=== PATIENT | female | born 1995 | race Caucasian/White ===

== ENCOUNTER 2021-07-05 01:59 | Emergency (ER) | payer OTHER ==
[~2021-07-05] VITALS: Ht 167.6 cm; Wt 83.2 kg
[2021-07-05 02:21] VITALS: BP 142/115
--- NOTE | 2021-07-05 02:25 | NUR ---
PT TAKEN TO BED 07
--- NOTE | 2021-07-05 02:46 | NUR ---
20G IV CATH PLACED R AC.
--- NOTE | 2021-07-05 03:03 | NUR ---
ER AT BEDSIDE
[2021-07-05] MEDS ORDERED: LORazepam 1 MG TAB PO ONE (03:05)
[2021-07-05] MEDS ORDERED: PANTOPRAZOLE 40 MG INJ VIAL IVP ONE (03:10)
[2021-07-05] MEDS ORDERED: NACL 0.9% 1,000 ML IV ONE (03:10)
[2021-07-05] MEDS ORDERED: ONDANSETRON 4 MG/2 ML VIAL IVP ONE (03:10)
[2021-07-05 03:17] LABS: BASOPHILS % (AUTO) 0.6 % (0.0-2.0); EOSINOPHILS % (AUTO) 0.7 % (0.0-4.0); MEAN CORPUSCULAR HEMOGLOBIN 35 pg (27-31); MEAN CORPUSCULAR HGB CONC 35 g/dL (33-37); MONOCYTES # (AUTO) 0.6 K/uL (0.8-1.0); WHITE BLOOD COUNT (AUTO) 6.3 K/uL (4.8-10.8)
--- NOTE | 2021-07-05 03:23 | NUR ---
LABS COLLECTED AND SENT TO LAB
[2021-07-05 03:30] LABS: HEMOGLOBIN 15.6 g/dL (12.0-16.0); MEAN CORPUSCULAR VOLUME 100.4 fL (80-94); PLATELET COUNT (AUTO) 299 K/uL (140-450); RED BLOOD CELL COUNT(AUTO) 4.48 MIL/uL (4.20-5.40); RED CELL DISTRIBUTION WIDTH 13.5 % (11.6-13.7)
[2021-07-05 03:31] LABS: LYMPHOCYTES # (AUTO) 1.1 K/uL (2.5-16.5); LYMPHOCYTES % (AUTO) 16.9 % (20.5-51.1); MONOCYTES % (AUTO) 9.8 % (1.7-9.3); NEUTROPHILS # (AUTO) 4.5 K/uL (1.8-7.7)
[2021-07-05 03:45] LABS: ALBUMIN 4.3 g/dL (3.4-5.0); ANION GAP 16.7 (8-16); ASPARTATE AMINOTRANSFERASE 115 U/L (15-37); CHLORIDE 99 mmol/L (98-107); CREATININE 0.7 mg/dL (0.6-1.3); GFR ARICAN-AMERICAN 129 mL/min (>90); GLUCOSE 170 mg/dL (74-106); LIPASE 158 U/L (73-393); SODIUM SERUM 139 mmol/L (136-145); UREA NITROGEN, BLOOD 9 mg/dL (7-18)
[2021-07-05 03:58] LABS: POTASSIUM 2.7 mmol/L (3.5-5.1)
[2021-07-05] MEDS ORDERED: POTASSIUM CHL 40 MEQ/ D5-1/2NS 1,000 ML IV ONE (04:00)
[2021-07-05] MEDS ORDERED: POTASSIUM CHLORIDE 10 MEQ TABER PO ONE (04:00)
[2021-07-05] MEDS ORDERED: chlordiazePOXIDE 25 MG CAP PO STA (04:08)
--- NOTE | 2021-07-05 04:45 | NUR ---
PT AWAKE STATES SOME RELIEF FROM MEDS. HOB ELEVATED. PAIN 5/10. RESP EVEN AND UNLABORED
--- NOTE | 2021-07-05 05:07 | NUR ---
ER MD AT BEDSIDE DISCUSSING PT RESULTS
--- NOTE | 2021-07-05 05:08 | NUR ---
Camille may in [facility] - 07/05/21 at 0509 by BULL RECIEVED REPORT FROM NABIL YEH
--- NOTE | 2021-07-05 05:10 | NUR ---
RECIEVED REPORT FROM PILAR YEH
[2021-07-05] MEDS ORDERED: POTA10TA70 PO (05:14)
[2021-07-05] MEDS ORDERED: LIB25 PO (05:14)
[2021-07-05] MEDS ORDERED: ONDA-188 SL (05:14)
[2021-07-05 05:43] VITALS: BP 136/98
--- NOTE | 2021-07-05 05:45 | NUR ---
Patient discharged with v/s stable. Written and verbal after care instructions given and explained. Patient alert, oriented and verbalized understanding of instructions. Ambulatory with steady gait. All questions addressed prior to discharge. ID band removed. Patient advised to follow up with PMD. Rx of ZOFRAN, LIBRIUM, AND K-DUR given. Patient educated on indication of medication including possible reaction and side effects. Opportunity to ask questions provided and answered. VSS, A/OX4, UNLABORED BREATHING, AMBULATORY, AND CALM DEMEANOR.
== END 2021-07-05 05:46 | disposition home or self-care (01) ==
LOC: MED 01:59
DX: R11.10 Vomiting, unspecified (principal); F10.239 Alcohol dependence with withdrawal, unspecified; E87.6 Hypokalemia
CPT/HCPCS: 36415; 80053; 83605; 83690; 85025; 96361; 96365; 96375; 99284; C9113; G0482; J2405; J7030; 96374

== ENCOUNTER 2021-10-17 12:33 | Emergency (ER) | payer OTHER ==
[~2021-10-17] VITALS: Ht 167.6 cm; Wt 78.9 kg
[~2021-10-17 12:33] MED LIST: LIB25 PO; ONDA-188 SL; POTA10TA70 PO
[2021-10-17 12:44] VITALS: BP 135/106
--- NOTE | 2021-10-17 12:53 | NUR ---
PT AMB TO BED 7.
[2021-10-17] MEDS ORDERED: NACL 0.9% 1,000 ML IV ONE ×2 (13:00→15:20)
[2021-10-17] MEDS ORDERED: LORazepam 1 MG TAB PO ONE (13:00)
[2021-10-17] MEDS ORDERED: MAG SULF 2000 MG/WATER PREMIX 50 ML IV STA (13:01)
--- NOTE | 2021-10-17 13:01 | NUR ---
PT C/O ETOH WITHDRAWL, LAST DRINK LAST NIGHT. PT DRINKS APPROX 7-8 BEERS DAILY FOR 3 WEEKS. PT TACHYCARDIC, CLAMMY, TREMORS AND ANXIOUS. IV INSERTED TO LEFT AC #[id number].
[2021-10-17] MEDS ORDERED: FOLIC ACID 5 MG, MULTIVITAMIN-12 10 ML in NACL 0.9% 1,000 ML IV ONE (13:05)
[2021-10-17] MEDS ORDERED: THIAMINE 200 MG/2 ML VIAL IM ONE (13:05)
--- NOTE | 2021-10-17 13:31 | NUR ---
pharmacy called for banana bag
--- NOTE | 2021-10-17 13:55 | NUR ---
PT AMBULATED TO RESTROOM
--- NOTE | 2021-10-17 14:00 | NUR ---
PT AMBULATED TO BACK TO ROOM
--- NOTE | 2021-10-17 14:05 | NUR ---
26YO FEMALE PT C/O ALCOHOL WITHDRAWAL XYESTERDAY. PT DRINKS ABOUT 5-6 BEERS DAILY, LAST DRINK BEING LAST NIGHT. PT PRESENTS TACHYCARDIC, CLAMMY, ANXIOUS AND W/ TREMORS. STATES 5/10 TIGHT ABDOMINAL PAIN DUE TO VOMITING X5 TODAY , DENIES BLOOD. ABDOMEN NON TENDER OR DISTENED, ACTIVE X4. DENIES DIARRHEA, CHEST PAIN, SOB OR FEVERS. NO RELIEF AFTER TAKING OTC ANTINASUEA MEDICATION. HX: BIPOLAR, ANXIETY NKA
[2021-10-17 14:23] LABS: BASOPHILS % (AUTO) 0.5 % (0.0-2.0); EOSINOPHILS % (AUTO) 0.2 % (0.0-4.0); HEMATOCRIT 43.9 % (36-48); HEMOGLOBIN 15.1 g/dL (12.0-16.0); LYMPHOCYTES # (AUTO) 1.2 K/uL (2.5-16.5); LYMPHOCYTES % (AUTO) 16.3 % (20.5-51.1); MEAN CORPUSCULAR HEMOGLOBIN 34 pg (27-31); MEAN CORPUSCULAR HGB CONC 34 g/dL (33-37); MEAN CORPUSCULAR VOLUME 98.6 fL (80-94); MONOCYTES # (AUTO) 0.4 K/uL (0.8-1.0); MONOCYTES % (AUTO) 5.8 % (1.7-9.3); NEUTROPHILS # (AUTO) 5.9 K/uL (1.8-7.7); NEUTROPHILS % (AUTO) 77.2 % (42.2-75.2); PLATELET COUNT (AUTO) 259 K/uL (140-450); RED BLOOD CELL COUNT(AUTO) 4.46 MIL/uL (4.20-5.40); RED CELL DISTRIBUTION WIDTH 13.6 % (11.6-13.7); WHITE BLOOD COUNT (AUTO) 7.6 K/uL (4.8-10.8)
[2021-10-17 14:30] LABS: ALBUMIN 4.3 g/dL (3.4-5.0); ANION GAP 20.7 (8-16); ASPARTATE AMINOTRANSFERASE 167 U/L (15-37); CARBON DIOXIDE 22.8 mmol/L (21-32); CHLORIDE 101 mmol/L (98-107); CREATININE 0.8 mg/dL (0.6-1.3); GFR ARICAN-AMERICAN 111 mL/min (>90); GLUCOSE 151 mg/dL (74-106); POTASSIUM 3.5 mmol/L (3.5-5.1); SODIUM SERUM 141 mmol/L (136-145); TOTAL BILIRUBIN 0.6 mg/dL (0.0-1.0); UREA NITROGEN, BLOOD 9 mg/dL (7-18)
--- NOTE | 2021-10-17 14:32 | NUR ---
MD LANG AT BEDSIDE FOR EVALUATION
[2021-10-17] MEDS ORDERED: LORazepam 2 MG/ML VIAL IVP ONE ×3 (14:40→17:00)
[2021-10-17 14:47] LABS: ACETAMINOPHEN < 0.5 ug/ml (10-30); SALICYLATE < 2.8 mg/dL (2.8-20.0)
[2021-10-17] MEDS ORDERED: DICYCLOMINE HCL LIQUID 20 MG, ALUMINUM HYD/MAG/SIMETHICONE 30 ML, LIDOCAINE VISCOUS 2% ... PO ONE ×3 (15:00)
[2021-10-17] MEDS ORDERED: ONDANSETRON 4 MG/2 ML VIAL IVP ONE (15:00)
[2021-10-17] MEDS ORDERED: ALUMINUM HYD/MAG/SIMETHICONE 30 ML UDC ONE (15:07)
[2021-10-17] MEDS ORDERED: DICYCLOMINE HCL LIQUID 10 MG/5 ML UDC ONE (15:07)
[2021-10-17 15:27] LABS: BARBITURATE, URINE NEGATIVE ng/ml (NEG <=200); BENZODIAZEPINE, URINE POSITIVE ng/mL (NEG <=200); CANNABINOID, URINE NEGATIVE ng/mL (NEG <=50); COCAINE, URINE NEGATIVE ng/mL (NEG <=300); OPIATE, URINE NEGATIVE ng/mL (NEG <=2000); PHENCYCLIDINE SCREEN,URINE NEGATIVE ng/mL (NEG <=25)
[2021-10-17 15:31] LABS: APPEARANCE,URINE CLEAR (CLEAR); BILIRUBIN,URINE NEGATIVE (NEGATIVE); BLOOD, URINE TRACE-I (NEGATIVE); COLOR,URINE YELLOW (YELLOW); LEUKOCYTE ESTERASE ,URINE NEGATIVE (NEGATIVE); NITRITE, URINE NEGATIVE (NEGATIVE); UGLUCOSE NEGATIVE (NEGATIVE)
[2021-10-17 16:12] LABS: RBC,URINE 0-5 /HPF (0-5); WBC,URINE 0-5 /HPF (0-5)
[2021-10-17 16:13] LABS: TRICHOMONAS,URINE None Seen /HPF (None Seen); YEAST,URINE None Seen /HPF (None Seen)
[2021-10-17] MEDS ORDERED: LIB25 PO ×3 (18:23→18:28)
[2021-10-17 19:10] VITALS: BP 131/86
--- NOTE | 2021-10-17 19:10 | NUR ---
Patient discharged with v/s stable. Written and verbal after care instructions FOR ALCOHOL WITHDRAWAL SYNDROME given and explained. Patient alert, oriented and verbalized understanding of instructions. Ambulatory with steady gait. All questions addressed prior to discharge. ID band removed. Patient advised to follow up with PMD. Rx of LIBRIUM given. Opportunity to ask questions provided and answered. CATHI KLINE PROVIDED
--- NOTE | 2021-10-17 19:30 | NUR ---
Camille may in ED - 10/17/21 at 1935 by [facility] REPORT GIVEN TO BHAVNA QUEZADA .ALL QUESTIONS ANSWERED. TRANSFER OF CARE AT THIS TIME
--- NOTE | 2021-10-17 19:41 | NUR ---
Chart checked and completed. The patient's care was reviewed and supervised by Yahaira Torrez RN.
== END 2021-10-17 19:10 | disposition home or self-care (01) ==
LOC: MED 12:33
DX: F10.239 Alcohol dependence with withdrawal, unspecified (principal); R00.0 Tachycardia, unspecified; F41.9 Anxiety disorder, unspecified; Z79.899 Other long term (current) drug therapy
CPT/HCPCS: 36415; 80053; 80305; 81001; 81025; 84443; 85025; 93005; 96365; 96366; 96368; 96372; 96375; 96376; 99285; A9153; G0480; G0482; J2060; J2405; J3411; J3475; J3490; J7030

== ENCOUNTER 2022-01-30 10:22 | Emergency (ER) | payer OTHER ==
[~2022-01-30] VITALS: Ht 167.6 cm; Wt 79.6 kg
[2022-01-30 10:34] VITALS: BP 131/109
--- NOTE | 2022-01-30 10:45 | NUR ---
26F presents to ED with c/o alcohol withdrawal since last night. Pt reports last alcohol intake was yesterday at 4pm, started withdrawal symptoms at 2am. Pt reports taking Librium with no relief. Pt reports tremors, nausea and stomach pain. Pt changed into gown and placed on bedside monitor, seizure pads placed on side rails x2.
[2022-01-30] MEDS ORDERED: DIAZEPAM PFS 10 MG/2 ML SYR IVP ONE ×2 (11:05→11:55)
[2022-01-30] MEDS ORDERED: NACL 0.9% 1,000 ML IV ONE (11:05)
[2022-01-30 11:46] LABS: ALBUMIN 3.8 g/dL (3.4-5.0); ANION GAP 18.9 (8-16); CARBON DIOXIDE 24.2 mmol/L (21-32); CREATININE 0.7 mg/dL (0.6-1.3); POTASSIUM 4.1 mmol/L (3.5-5.1); TOTAL BILIRUBIN 0.4 mg/dL (0.0-1.0)
[2022-01-30 11:47] LABS: BASOPHILS % (AUTO) 0.9 % (0.0-2.0); EOSINOPHILS % (AUTO) 0.7 % (0.0-4.0); HEMATOCRIT 41.2 % (36-48); LYMPHOCYTES # (AUTO) 1.4 K/uL (2.5-16.5); LYMPHOCYTES % (AUTO) 34.6 % (20.5-51.1); MEAN CORPUSCULAR HEMOGLOBIN 33 pg (27-31); MEAN CORPUSCULAR HGB CONC 34 g/dL (33-37); MEAN CORPUSCULAR VOLUME 98.3 fL (80-94); MONOCYTES # (AUTO) 0.5 K/uL (0.8-1.0); NEUTROPHILS # (AUTO) 2.1 K/uL (1.8-7.7); NEUTROPHILS % (AUTO) 51.8 % (42.2-75.2); PLATELET COUNT (AUTO) 258 K/uL (140-450); RED BLOOD CELL COUNT(AUTO) 4.19 MIL/uL (4.20-5.40); RED CELL DISTRIBUTION WIDTH 12.7 % (11.6-13.7)
[2022-01-30] MEDS ORDERED: chlordiazePOXIDE 25 MG CAP ONE (12:16)
[2022-01-30] MEDS ORDERED: chlordiazePOXIDE 25 MG CAP PO SCH (13:00)
--- NOTE | 2022-01-30 13:05 | NUR ---
MARAL BOLES SAMPLE COLLECTED AND WALKED TO LAB
[2022-01-30] MEDS ORDERED: TRAZ-343 PO (13:16)
[2022-01-30] MEDS ORDERED: LAM200 PO (13:17)
[2022-01-30] MEDS ORDERED: DULO30EC PO (13:17)
[2022-01-30] MEDS ORDERED: BUPR300T70 PO (13:17)
[2022-01-30] MEDS ORDERED: BUS5 PO (13:17)
--- NOTE | 2022-01-30 13:20 | NUR ---
Patient does not wish to proceed with medical care recommended by GHISLAINE. Patient given information related to possible complications, up to and including , which could occur as a result of leaving hospital at this time. Patient verbalizes understanding of risks involved leaving against medical advice. Patient has signed AMA form.
[2022-01-30 13:22] VITALS: BP 121/92
[2022-01-30] MEDS ORDERED: LIB25 PO (13:23)
== END 2022-01-30 13:20 | disposition home or self-care (01) ==
LOC: MED 10:22
DX: F10.239 Alcohol dependence with withdrawal, unspecified (principal); Z20.822 Contact with and (suspected) exposure to COVID-19; Z79.899 Other long term (current) drug therapy; Y90.2 Blood alcohol level of 40-59 mg/100 ml
CPT/HCPCS: 36415; 80053; 84703; 85025; 87426; 93005; 96361; 96374; 96375; 99284; G0482; J3360; J7030